=== PATIENT | male | born 1980 | race Two or more races ===

== ENCOUNTER 2021-06-26 14:55 | Emergency (ER) | payer MEDICAID, OTHER ==
[~2021-06-26] VITALS: Ht 170.2 cm; Wt 88.5 kg
[2021-06-26 17:49] LABS: Basophils # (auto) 0 10 ^3/uL (0-0.2); Basophils % (auto) 0.5 % (0.0-2.0); Eosinophils # (auto) 0.3 10 ^3/uL (0-0.8); Hematocrit 44.9 % (41.0-53.0); Hemoglobin 15.4 g/dL (13.5-17.5); Lymphocytes # (auto) 3.6 10 ^3/uL (0.4-5.4); Lymphocytes % (auto) 41.2 % (10.0-50.0); Mean Corpuscular Hemoglobin 30.2 pg (28.0-32.0); Mean Corpuscular Hgb Conc. 34.4 g/dL (32.0-36.0); Mean Corpuscular Volume 87.9 fL (80.0-100.0); Monocytes # (auto) 0.6 10 ^3/uL (0-1.3); Monocytes % (auto) 6.9 % (0.0-12.0); Neutrophils # (auto) 4.2 10 ^3/uL (1.6-8.6); Neutrophils % (auto) 48.4 % (37.0-80.0); Red Blood Cells 5.11 10^6/uL (4.5-5.90); Red Cell Distribution Width 13.6 % (11.8-14.3); White Blood Cell 8.8 10^3/uL (4.4-10.8)
[2021-06-26 17:59] LABS: Albumin 3.7 g/dL (3.4-5.0); Potassium 4.3 mmol/L (3.5-5.1)
[2021-06-26 18:02] LABS: Bilirubin, Total 0.3 mg/dL (0.2-1.0); Total Protein 7.6 g/dL (6.4-8.2)
[2021-06-26] MEDS ORDERED: CEPH-509 PO (23:37)
[2021-06-27 03:02] VITALS: BP 159/97
== END 2021-06-27 03:04 | disposition home or self-care (01) ==
LOC: ER 14:55
DX: R19.00 Intra-abdominal and pelvic swelling, mass and lump, unspecified site (principal); R22.41 Localized swelling, mass and lump, right lower limb; Z79.899 Other long term (current) drug therapy
CPT/HCPCS: 36415; 73700; 74176; 80053; 85025

== ENCOUNTER 2021-06-30 11:43 | Emergency (ER) | payer MEDICAID ==
[~2021-06-30] VITALS: Ht 167.6 cm; Wt 86.2 kg
[~2021-06-30 11:43] MED LIST: CEPH-509 PO
[2021-06-30] MEDS ORDERED: CEPH500C PO (14:11)
[2021-06-30 14:15] VITALS: BP 122/70
== END 2021-06-30 14:33 | disposition home or self-care (01) ==
LOC: ER 11:43
DX: R22.41 Localized swelling, mass and lump, right lower limb (principal); D17.5 Benign lipomatous neoplasm of intra-abdominal organs